=== PATIENT | male | born 1990 | race Hispanic/Latino ===

== ENCOUNTER 2021-09-21 08:57 | Emergency (ER) | payer OTHER ==
[~2021-09-21] VITALS: Ht 170.2 cm; Wt 75.7 kg
[2021-09-21] MEDS ORDERED: NAPR375T6 PO (10:39)
[2021-09-21 11:00] VITALS: BP 118/76
[2021-09-21] MEDS ORDERED: NAPROXEN 250 MG TAB ONE (11:05)
[2021-09-21] MEDS ORDERED: NAPROXEN 500 MG TABLET PO SCH (11:30)
== END 2021-09-21 11:34 | disposition home or self-care (01) ==
LOC: EDH 08:57
DX: S86.911A Strain of unspecified muscle(s) and tendon(s) at lower leg level, right leg, initial encounter (principal); X58.XXXA Exposure to other specified factors, initial encounter; Y93.89 Activity, other specified; Y92.89 Other specified places as the place of occurrence of the external cause; Y99.8 Other external cause status
CPT/HCPCS: 73501; 73590; 73600

== ENCOUNTER 2022-03-04 05:05 | Emergency (ER) | payer OTHER ==
[~2022-03-04] VITALS: Ht 170.2 cm; Wt 76.2 kg
[~2022-03-04 05:05] MED LIST: NAPR375T6 PO
[2022-03-04 05:06] VITALS: BP 136/87
== END 2022-03-04 05:33 ==
LOC: EDH 05:05
DX: Z02.89 Encounter for other administrative examinations (principal); Z79.1 Long term (current) use of non-steroidal anti-inflammatories (NSAID)